=== PATIENT | female | born 1985 | race Caucasian/White ===

== ENCOUNTER 2021-07-16 10:48 | Day surgery (SDC) | payer OTHER, MEDICARE ==
[~2021-07-16] VITALS: Ht 162.6 cm; Wt 109.1 kg
--- NOTE | ~2021-07-16 | OR ---
[facility] [address] [place], [place] [address] Draft DATE OF OPERATION: 07/16/2021 SURGEON: Florentino Valencia DO PROCEDURE: Hysteroscopy, dilatation and curettage, and colposcopy with endocervical curettage. PREOPERATIVE DIAGNOSES: Abnormal uterine bleeding, fibroid uterus, low-grade squamous intraepithelial lesion on cervical Pap smear. POSTOPERATIVE DIAGNOSIS: Abnormal uterine bleeding, fibroid uterus, low-grade squamous intraepithelial lesion on cervical Pap smear. MASSEUR/MASSEUSE: None. COMPLICATIONS: None. EBL: 25 mL. FINDINGS: Colonoscopy, low-grade cervical appearance. No acetowhite uptake. No abnormalities visualized with Lugol solution. Hysteroscopy diffusely thickened polypoid endometrium consistent with premenstrual state, posterior fundal fibroid and anterior sessile polyp measuring approximately 1 cm. INDICATIONS: The patient is a 36-year-old female, who strongly desires definitive surgical management of her abnormal uterine bleeding due to abnormal Pap. Recommended colposcopy prior to procedure as well as endometrial tissue sampling with hysteroscopy, D and C being preferred over endometrial biopsy. Risks, benefits, alternatives were discussed and the patient elected to proceed. DESCRIPTION OF PROCEDURE: The patient was taken to the operating room where she was placed in dorsal lithotomy position under monitored anesthesia care. External pelvic prep was performed and she PATIENT NAME: MOISES SEGURA OPERATIVE REPORT DATE OF : [birth year] REPORT #: [id number] PHYSICIAN: FLORENTINO VALENCIA DO PCP: OTHER PCP REPORT IS CONFIDENTIAL AND NOT TO BE RELEASED WITHOUT AUTHORIZATION [facility] [address] [place], [place] [address] Draft was draped in the usual sterile fashion. Acetic acid was then applied to the vagina and the cervix and colposcopy was performed with good visualization of the squamocolumnar junction. No acetowhite uptake was visualized. Lugol solution was then applied. Similarly, no abnormal lesions were visualized after application of Lugol's. Incision was made to proceed with endocervical curettage, which was completed without difficulty. Instrumentation was removed and the vaginal prep was performed with Betadine solution. Weighted speculum was then placed in the vagina. Anterior lip of the cervix was grasped with an Allis clamp and easily sequentially dilated to accommodate a 6 mm scope. The scope was then introduced and inserted into the uterine cavity without any difficulty or resistance. Uterine cavity was surveyed with findings as noted above. MyoSure device was then used to perform circumferential curettage of the endometrium, polypectomy, and partial myomectomy of the posterior fibroid. All instrumentation was removed. Fluid deficit was noted to be 350 mL. Sterile saline . Cervix was reexamined and noted to be hemostatic and patient was taken to the recovery in stable and satisfactory condition. Florentino Valencia DO EMAlexandria/MODL /[id number] Copies: ~ PATIENT NAME: MOISES SEGURA OPERATIVE REPORT DATE OF : [birth year] REPORT #: [id number] PHYSICIAN: FLORENTINO VALENCIA DO PCP: OTHER PCP REPORT IS CONFIDENTIAL AND NOT TO BE RELEASED WITHOUT AUTHORIZATION
[~2021-07-16 10:48] MED LIST: BENADRYL25 MG PO; IRON18 MG PO
--- NOTE | 2021-07-16 18:49 | NUR ---
07/16/211848 Leticia Johnston 184: PT ARRIVES TO PACU FROM OR VIA STRETCHER. AWAKE ON AND OFF, RESPONDS TO VERBAL STIMULUS. VSS, RESP EVEN AND UNLABORED ON RA. MAINTAINS OWN AIRWAY. DENIES PAIN AND NAUSEA AT THIS TIME
--- NOTE | 2021-07-18 16:58 | PATH ---
[facility] [address] [place], [place] [address] Signed SPECIMEN(S): A ENDOCERVICAL CURETTINGS SPECIMEN(S): B ENDOMETRIAL CURETTINGS SPECIMEN SOURCE: A. ENDOCERVICAL CURETTINGS B. ENDOMETRIAL CURETTINGS CLINICAL HISTORY: Abnormal uterine bleeding, LGSIL on Pap smear of cervix. Hysteroscopy DC, colposcopy with biopsy. FINAL PATHOLOGIC DIAGNOSIS: A. Endocervix, curettage: - Non-diagnostic; scant tissue did not survive processing. B. Endometrium, curettage: - Secretory phase endometrium with features of endometrial polyps. - No hyperplasia or neoplasia identified. COMMENT: The previous cytologic material ([id number]) is reviewed. The histologic findings in the current case do not explain the cytologic findings. Continued follow-up in accordance with current ASCCP guidelines is recommended. BRP:cml:C2NR MICROSCOPIC EXAMINATION: Histologic sections of all submitted blocks are examined by light microscopy. These findings, together with the gross examination, support the pathologic diagnosis. GROSS DESCRIPTION: Two specimens are received in two containers, labeled "AD." A. The specimen, labeled "AD, A," and designated on the requisition "ECC," is received in formalin and consists of two fragments of brown-jackson tissue (less than 0.1 cm in aggregate) that would likely not survive processing. The specimen is sent to cytology for cell block preparation. B. The specimen, labeled "AD, B," and designated on the requisition "EMC," is received in formalin and consists of multiple fragments of pink-jackson soft tissue (4.0 x 2.5 x 0.5 cm in aggregate). The specimen is submitted entirely in cassettes (B1-B2). PATIENT NAME: MOISES SEGURA PATHOLOGY DATE OF : [birth year] REPORT #: [id number] PHYSICIAN: JUDIE CONCEPCION PCP: OTHER PCP REPORT IS CONFIDENTIAL AND NOT TO BE RELEASED WITHOUT AUTHORIZATION [facility] [address] [place], [place] [address] Signed AC (under the direct supervision of a pathologist) The Gross Description was prepared using a voice recognition system. The report was reviewed for accuracy; however, sound-alike word errors, addition and/or deletions may occur. If there is any question about this report, please contact Client Services. PERFORMING LABORATORY: The technical component was performed by [facility] [address] (Pit Furnace Operator: Shannen Oliver MD; CLIA# [id number]).Professional [facility], [address] [address] (CLIA# [id number]). Diagnostician: Nolan Donaldson MD Pathologist Electronically Signed 07/18/2021 Copies: ~ PATIENT NAME: MOISES SEGURA PATHOLOGY DATE OF : [birth year] REPORT #: [id number] PHYSICIAN: JUDIE CONCEPCION PCP: OTHER PCP REPORT IS CONFIDENTIAL AND NOT TO BE RELEASED WITHOUT AUTHORIZATION
== END 2021-07-16 19:24 | disposition home or self-care (01) ==
LOC: DS 10:48 → OPS 10:48
PROVIDERS: ATTEND Obstetrics & Gynecology
PROC: 0UDB8ZZ Extraction of Endometrium, Via Natural or Artificial Opening Endoscopic (ICD-10-PCS; principal; 2021-07-16 13:15)
PROC: 0UJH8ZZ Inspection of Vagina and Cul-de-sac, Via Natural or Artificial Opening Endoscopic (ICD-10-PCS; 2021-07-16 13:15)
DX: D25.9 Leiomyoma of uterus, unspecified (principal); R87.612 Low grade squamous intraepithelial lesion on cytologic smear of cervix (LGSIL); D50.0 Iron deficiency anemia secondary to blood loss (chronic); Z87.891 Personal history of nicotine dependence
CPT/HCPCS: 00952; J1100; J1885; J2001; J2250; J2405; J2704; J7121

== ENCOUNTER 2021-07-30 05:45 | Day surgery (SDC) | payer OTHER, MEDICARE ==
[~2021-07-30] VITALS: Ht 162.6 cm; Wt 108.9 kg
--- NOTE | ~2021-07-30 | OR ---
[facility] [address] [place], [place] [address] Draft DATE OF OPERATION: 07/30/2021 SURGEON: Florentino Valencia DO PROCEDURE: Total laparoscopic hysterectomy, bilateral salpingectomy, ExCITE procedure, cystoscopy. MATHEMATICS TECHNICIAN: Ean Redding MD PREOPERATIVE DIAGNOSES: 1. Abnormal uterine bleeding. 2. Fibroid uterus. 3. BMI 43. 4. Iron deficiency anemia. POSTOPERATIVE DIAGNOSES: 1. Abnormal uterine bleeding. 2. Fibroid uterus. 3. BMI 43. 4. Iron deficiency anemia. 5. Endometriosis. COMPLICATIONS: None. BLOOD LOSS: 50 mL. FINDINGS: Significantly enlarged fibroid uterus with numerous small scattered endometriosis lesions throughout the abdomen and pelvis including overlying the bladder, anterior and posterior uterus, bilateral abdominal sidewalls. No endometriomas were noted on either ovary. No deep scarring was observed. No lesions visible on uterosacral ligaments or bilateral ovarian fossa. INDICATIONS: The patient is a 36-year-old female with known fibroids history of very heavy painful and prolonged periods. She strongly desired definitive surgical management. She underwent hysteroscopy, D and C as well as colposcopy due to history of low-grade PATIENT NAME: MOISES SEGURA OPERATIVE REPORT DATE OF : [birth year] REPORT #: [id number] PHYSICIAN: FLORENTINO VALENCIA DO PCP: OTHER PCP REPORT IS CONFIDENTIAL AND NOT TO BE RELEASED WITHOUT AUTHORIZATION [facility] [address] [place], [place] [address] Draft squamous intraepithelial lesions with some benign findings resulting. Risks, benefits, and alternatives to total laparoscopic hysterectomy were discussed and she elected to proceed. DESCRIPTION OF PROCEDURE: The patient was taken back to the operating room where she was given 2 g Ancef and 5000 units heparin subcu. She was placed under general anesthesia and positioned in dorsal lithotomy and prepped and draped in the normal sterile fashion. Weighted speculum was placed. Anterior lip of the cervix was grasped with an Allis clamp and cervix was easily sequentially dilated to accommodate a medium-sized VCare uterine manipulator. First sounded to 9 cm. A VCare uterine manipulator was placed without difficulty and all other instrumentation was removed. Surgeon's gloves were changed and attention was turned to the abdomen. Local anesthetic was injected infraumbilically and an infraumbilical curvilinear incision was made. This was carried down to the fascia with blunt and sharp dissection with hemostats and Metzenbaum scissors. The fascia was grasped and elevated with hemostats and incised with Metzenbaum scissors. Inferior and superior lip of the fascia were each grasped with a stay suture of 0 Vicryl. The peritoneum was entered bluntly. Madison trocar was placed without difficulty. Abdomen was insufflated with CO2 gas and camera confirmed intra-abdominal placement. Left lateral abdominal assist port was placed after local injection and 5 mm incision with a scalpel. A 5 mm trocar was placed under direct visualization without incident. Attention was then turned to the right lateral abdomen where in a similar fashion an 8 mm incision was made with a scalpel after infiltration with local anesthetic and an 8 mm trocar was placed under direct visualization without incident. Blunt grasper and patient positioning in Trendelenburg facilitated visualization of pelvic structures with findings as noted above. Shortly after pneumoperitoneum was achieved and the patient was placed in Trendelenburg positioning, she began to have a mild bradycardia event at which point she was returned to normal positioning and abdomen was slightly deflated with excellent return of normal heart rate. She is once again placed in Trendelenburg position without incident and pneumoperitoneum was resumed. Left fimbria were grasped and elevated with graspers and left tube was cauterized and cut to the mesosalpinx and transected at the cornea using a LigaSure device. The tube was removed from the abdomen under direct visualization. In a similar manner, fimbriated end of the right tube was then grasped and elevated and the mesosalpinx was cauterized and cut to level of the cornea at which point, the tube was transected and removed from the abdomen under direct visualization. Left utero-ovarian ligament was cauterized and cut with LigaSure device. In a similar manner, the right utero-ovarian ligament was also cauterized and cut with LigaSure device. Left round ligament was cauterized and cut with LigaSure, allowing entry into the broad ligament. Anterior leaf of the broad ligament was dissected down to the level of the cardinal ligaments and then brought across anteriorly creating the start of the bladder flap. In a similar manner, the posterior leaf was dissected down to the level of the uterosacral ligament, brought across medially to develop a posterior PATIENT NAME: MOISES SEGURA OPERATIVE REPORT DATE OF : [birth year] REPORT #: [id number] PHYSICIAN: FLORENTINO VALENCIA DO PCP: OTHER PCP REPORT IS CONFIDENTIAL AND NOT TO BE RELEASED WITHOUT AUTHORIZATION [address] [address] Draft dissection. Uterine vessels were then skeletonized and cauterized and cut using LigaSure device with hemostasis resulting. Attention was then turned to the right side where in a similar manner, the right round ligament was cauterized and cut allowing entry into the broad ligament. The anterior leaf of the broad ligament was dissected to the level of the cardinal ligaments and then dissected across anteriorly to meet with a prior dissection and further develop the bladder flap, posteriorly, the posterior leaf was cauterized and cut with the ligature to the level of the cardinal ligaments and brought medially to meet also with a prior dissection from the opposite side. Uterine vessels were skeletonized, cauterized, and cut with excellent palpation of the VCare manipulator . Colpotomy was made with Sonicision device with some difficulty due to large fibroid uterus, but with careful positioning of the manipulator excellent visualization was able to be maintained at all times. Attempts were made to deliver the uterus vaginally, but once proved unsuccessful, decision was made to proceed with ExCITE procedure. EndoCatch bag was placed in the abdomen. Uterus was easily manipulated into the EndoCatch bag which was then brought up through the supraumbilical incision. Tahir retractor was placed the cervix was grasped with a single-tooth tenaculum, elevated and starting with the cervix, we are working sequentially to the entire uterus, C incisions were performed with a scalpel, allowing for careful dissection of the uterus and removal through the umbilical incision while maintaining containment within the EndoCatch bag. Once the entire uterus and fibroids had been removed, EndoCatch bag was removed through the uterus and Tahir retractor was removed and Madison trocar was replaced. Pelvis was suction irrigated with warm sterile saline with excellent hemostasis noted. Vaginal cuff was closed with EndoStitch device using VCare locking suture working from right to left taking care to stay within the uterosacrals and then left to right to finally lock the suture. Suture was cut. Pelvis was reinspected. Tisseel was applied over the vaginal cuff. Pneumoperitoneum was evacuated. The fascia was closed with 0 Vicryl in a running fashion. Skin was closed with 4-0 Monocryl and cystoscopy was performed. Oscar catheter was removed. Cystoscope was introduced through the urethra. Bladder was surveyed with dome noted to be intact without any signs of puckering or injury. Trigone was easily visualized and bilateral ureteral jets were quickly seen. Scope was removed. Oscar catheter was replaced to be removed in PACU once the patient was ambulating. Vagina was inspected and vaginal cuff was noted to be intact. All sponge and instrument counts were correct x2. The patient tolerated the procedure well and was taken to recovery room in stable and satisfactory condition with plans to discuss endometriosis suppression postoperatively. Florentino Valencia DO PATIENT NAME: MOISES SEGURA OPERATIVE REPORT DATE OF : [birth year] REPORT #: [id number] PHYSICIAN: FLORENTINO VALENCIA DO PCP: OTHER PCP REPORT IS CONFIDENTIAL AND NOT TO BE RELEASED WITHOUT AUTHORIZATION [address] [address] Draft MORTEZA/RIKI /[id number] Copies: ~ PATIENT NAME: MOISES SEGURA OPERATIVE REPORT DATE OF : [birth year] REPORT #: [id number] PHYSICIAN: FLORENTINO VALENCIA DO PCP: OTHER PCP REPORT IS CONFIDENTIAL AND NOT TO BE RELEASED WITHOUT AUTHORIZATION
--- NOTE | 2021-07-30 08:52 | NUR ---
PT STATED SHE DID NOT WANT OR NEED MY SERVICES. WILL FOLLOW NEEDED
--- NOTE | 2021-07-30 10:34 | NUR ---
07/30/21 Rocky4 Melissa Hughes 1029-PATIENT ARRIVED TO PACU ON 6L MASK NONAROUSABLE ORAL AIRWAY IN PLACE RR EVEN. SR. IVF INFUSING. 1 GRAM IV TYLENOL STARTING TO INFUSE. 3 LAP SITES TO ABDOMEN BANDAIDS CDI. RIVERA CATHETER TO GRAVITY DRAINING BRIGHT YELLOW URINE.
--- NOTE | 2021-07-30 11:28 | NUR ---
1110: PT RETURNS TO UNIT VIA STRETCHER FROM PACU. AWAKE AND ORIENTED ON ARRIVAL. DENIES PAIN AND NAUSEA. REPORTS BEING CHILLED. WARM BLANKETS AND KAYE HUGGER PROVIDED. VSS, RESP EVEN AND UNLABORED ON RA. SMALL AMOUNT OF DRAINAGE NOTED ON LAP SITES, WNL. SCDS IN PLACE. POC DISCUSSED AND PT AGREEABLE AT THIS TIME. NO NEEDS VOICED, CALL LIGHT WITHIN REACH
--- NOTE | 2021-07-30 12:02 | NUR ---
1200: PT CALLS FOR THIS RN. REQUESTS RIVERA CATH REMOVAL. VSS, RESP EVEN AND UNLABORED. DENIES PAIN AND NAUSEA. 100ML FLOURESCENT YELLOW URINE DRAINED FROM CATH AND CATH REMOVED. NO DRAINAGE NOTED ON PERIPAD. NO CHANGE TO LAP SITES X3 FROM ARRIVAL. SCDS REMAIN IN PLACE. IV CONVERTED TO SL. PT PROVIDED ICE WATER AND CRACKERS. DION PO INTAKE WELL. NO NEEDS VOICED, CALL LIGHT WITHIN REACH
--- NOTE | 2021-08-01 15:17 | PATH ---
[facility] [address] [place], [place] [address] Signed SPECIMEN(S): A UTERUS, CERVIX, BILATERAL TUBES SPECIMEN SOURCE: A. UTERUS, CERVIX, BILATERAL TUBES CLINICAL HISTORY: Abnormal uterine bleeding. TLH, bilateral salpingectomy, cystoscopy. FINAL PATHOLOGIC DIAGNOSIS: Uterus with bilateral fallopian tubes, hysterectomy and bilateral salpingectomy: - Morcellated uterus. - Proliferative phase endometrium; no hyperplasia or neoplasia identified. - Leiomyomas. - Cervix with no significant pathologic changes. - Bilateral fallopian tubes with no significant pathologic changes. BRP:cml:C2NR MICROSCOPIC EXAMINATION: Histologic sections of all submitted blocks are examined by light microscopy. These findings, together with the gross examination, support the pathologic diagnosis. GROSS DESCRIPTION: The specimen, labeled "AD, A," and designated on the requisition "bilateral tubes, uterus, cervix," is received in formalin and consists of a morcellated uterus (325 gram, 4.5 x 11.5 x 7.0 cm in aggregate), and fragmented cervix with pink-jackson, smooth cervical mucosa, and two red-brown, detached and undesignated fimbriated fallopian tube segments (5.5 cm in length and ranging in diameter from 0.5-1.4 cm, and 7.3 cm in length and ranging in diameter from 0.7-1.4 cm). One fallopian tube segment is arbitrarily inked blue and has an attached paratubal cyst that measures 1.3 cm in greatest dimension. The remainder of the specimen shows pink-jackson serosa, pink-jackson myometrium and multiple white-jackson, well-circumscribed, whorled nodules that range in size from 0.5-3.8 cm in greatest dimension. There is also identifiable pink-jackson endometrium (0.3 cm in thickness). Supplies Packer sections are submitted as follows: Cassette Summary: (A1-A2) Fallopian tubes PATIENT NAME: MOISES SEGURA PATHOLOGY DATE OF : [birth year] REPORT #: [id number] PHYSICIAN: JUDIE PATHOLOGY PCP: OTHER PCP REPORT IS CONFIDENTIAL AND NOT TO BE RELEASED WITHOUT AUTHORIZATION [facility] [address] [place], [place] [address] Signed (A3) Cervix (A4) Endomyometrium (A5-A7) Nodules with myometrium AC (under the direct supervision of a pathologist) The Gross Description was prepared using a voice recognition system. The report was reviewed for accuracy; however, sound-alike word errors, addition and/or deletions may occur. If there is any question about this report, please contact Client Services. PERFORMING LABORATORY: The technical component was performed by [facility] [address] ([employer]: Shannen Oliver MD; CLIA# [id number]). Professional interpretation was performed by [facility], [address] [place], [place] [address] (CLIA# [id number]). Diagnostician: Nolan Donalsdon MD Pathologist Electronically Signed 08/01/2021 Copies: ~ PATIENT NAME: MOISES SEGURA PATHOLOGY DATE OF : [birth year] REPORT #: [id number] PHYSICIAN: JUDIE PATHOLOGY PCP: OTHER PCP REPORT IS CONFIDENTIAL AND NOT TO BE RELEASED WITHOUT AUTHORIZATION
== END 2021-07-30 13:02 | disposition home or self-care (01) ==
LOC: DS 05:45
PROVIDERS: ATTEND Obstetrics & Gynecology
PROC: 0UT94ZZ Resection of Uterus, Percutaneous Endoscopic Approach (ICD-10-PCS; principal; 2021-07-30 06:45)
PROC: 0UT74ZZ Resection of Bilateral Fallopian Tubes, Percutaneous Endoscopic Approach (ICD-10-PCS; 2021-07-30 06:45)
DX: D25.9 Leiomyoma of uterus, unspecified (principal); D50.9 Iron deficiency anemia, unspecified; N80.9 Endometriosis, unspecified; Z87.891 Personal history of nicotine dependence
CPT/HCPCS: 84703; 85027; J0330; J0690; J1100; J1644; J1885; J2001; J2250; J2405; J2704; J3475; J7121

== ENCOUNTER 2021-12-16 18:25 | Emergency (ER) | payer MEDICARE, OTHER ==
[~2021-12-16] VITALS: Ht 162.6 cm; Wt 104.3 kg
[2021-12-16] MEDS ORDERED: SPRINTEC1 EACH PO (19:36)
[2021-12-16] MEDS ORDERED: ULTRAM50 MG PO (20:41)
== END 2021-12-16 21:09 | disposition home or self-care (01) ==
LOC: ED 18:25
DX: S93.602A Unspecified sprain of left foot, initial encounter (principal); Z79.899 Other long term (current) drug therapy; W22.8XXA Striking against or struck by other objects, initial encounter
CPT/HCPCS: 73630; 96372; 99283-25; J1885

== ENCOUNTER 2022-08-07 10:11 | Emergency (ER) | payer OTHER, MEDICARE ==
[~2022-08-07] VITALS: Ht 162.6 cm; Wt 111.1 kg
[~2022-08-07 10:11] MED LIST changes: +SPRINTEC1 EACH PO; +ULTRAM50 MG PO
[2022-08-07] MEDS ORDERED: AMITRIPTYLINE H10 MG PO (10:32)
[2022-08-07] MEDS ORDERED: REGLAN10 MG PO (14:47)
== END 2022-08-07 15:07 | disposition home or self-care (01) ==
LOC: ED 10:11
DX: R51.9 Headache, unspecified (principal)
CPT/HCPCS: 36415; 70450; 70551; 80048; 84703; 85025; 96374; 96375; 99284-25; J1200; J1885; J2765

== ENCOUNTER 2022-11-03 16:32 | Emergency (ER) | payer OTHER, MEDICARE ==
[~2022-11-03] VITALS: Ht 162.6 cm; Wt 108.5 kg
[~2022-11-03 16:32] MED LIST changes: +AMITRIPTYLINE H10 MG PO; +REGLAN10 MG PO
[2022-11-03] MEDS ORDERED: LISINOPRIL20 MG PO (16:53)
[2022-11-03] MEDS ORDERED: AMITRIPTYLINE H50 MG PO (16:54)
[2022-11-03] MEDS ORDERED: SUMATRIPTAN SUC50 MG PO (16:54)
--- NOTE | 2022-11-04 19:30 | EKG ---
[facility] [address] [facility] [place] [address] Signed Normal sinus rhythm Minimal voltage criteria for LVH, may be normal variant ( [place] product ) Inferior infarct , age undetermined Abnormal ECG No previous ECGs available Confirmed by Hema Yanez MD () on 11/04/2022 7:30:30 PM Electronically Signed By: HEMA YANEZ MD 11/04/221929 PATIENT NAME: COLTONMOISES TRONCOSO Electrocardiogram DATE OF : 81 PHYSICIAN: HEMA YANEZ MD REPORT #: [id number] REPORT IS CONFIDENTIAL AND NOT TO BE RELEASED WITHOUT AUTHORIZATION
== END 2022-11-03 18:16 | disposition home or self-care (01) ==
LOC: ED 16:32
DX: R07.9 Chest pain, unspecified (principal); I10 Essential (primary) hypertension; Z79.899 Other long term (current) drug therapy
CPT/HCPCS: 36415; 71045; 80053; 84484; 85025; 85379; 93005; 93010

== ENCOUNTER 2023-08-07 06:47 | Day surgery (SDC) | payer OTHER, MEDICARE, MEDICAID ==
[2023-07-30 09:46] VITALS: BP 151/99
[~2023-08-07] VITALS: Ht 162.6 cm; Wt 104.5 kg
--- NOTE | ~2023-08-07 | OR ---
[facility] [address] [place], [place] [address] Draft DATE OF OPERATION: 08/07/2023 SURGEON: Jamey Grover MD PREOPERATIVE DIAGNOSIS: Carpal tunnel syndrome, right. POSTOPERATIVE DIAGNOSIS: Carpal tunnel syndrome, right. PROCEDURE PERFORMED: Carpal tunnel release, right. OWNER/OPERATOR: None. ANESTHESIA: Kd block. TOURNIQUET TIME: 20 minutes. BRIEF HISTORY: Guerda is a 38-year-old female with pain and numbness in her hand. Nerve conduction studies consistent with carpal tunnel. Risks and benefits of operative treatment were discussed with her and she elected to proceed. DESCRIPTION OF PROCEDURE: Once consent was obtained, she was taken to the operating room and left on the day surgery bed. Her arm was prepped and draped in a standard sterile fashion after establishment of the Kd block. The carpal tunnel was approached through a 1.5 cm incision and the distal wrist crease carried through skin and subcutaneous tissue. Palmaris longus was identified, retracted, and protected. The transverse carpal ligament was then identified under direct loupe magnification. It was then dissected free of overlying soft tissue proximally and distally. It was released proximally a centimeter and distally to the distal extent. This was visualized with the loops. There was then palpated using the Blencoe and found to be completely released. Wound was copiously irrigated with normal saline, closed with 3-0 nylon. It was then injected with 7 mL 0.25% Marcaine with epinephrine. The wound was dressed with bacitracin, Adaptic, 4 x 8s, PATIENT NAME: GUERDA SEGURA OPERATIVE REPORT DATE OF : [birth year] REPORT #: [id number] PHYSICIAN: JAMEY GROVER MD PCP: ROSELINE EASLEY PA-C REPORT IS CONFIDENTIAL AND NOT TO BE RELEASED WITHOUT AUTHORIZATION [facility] [address] [facility] [place], [place] [address] Draft and gauze. She tolerated the procedure well. All sponge, needle, and instrument counts were correct. Jamey Grover MD BA/RIKI /[id number] Copies: ~ PATIENT NAME: GUERDA SEGURA OPERATIVE REPORT DATE OF : [birth year] REPORT #: [id number] PHYSICIAN: JAMEY GROVER MD PCP: ROSELINE EASLEY PA-C REPORT IS CONFIDENTIAL AND NOT TO BE RELEASED WITHOUT AUTHORIZATION
[~2023-08-07 06:47] MED LIST changes: +AMITRIPTYLINE H50 MG PO; +IRON325 M1 PO; +LISINOPRIL20 MG PO; +METOPROLOL SUCC50 MG PO; +SUMATRIPTAN SUC50 MG PO; +VENTOLIN HFA18 GM
[2023-08-07 07:12] VITALS: BP 135/82
[2023-08-07] MEDS ORDERED: HYDROCODON-ACE1 EA10 PO (09:30)
--- NOTE | 2023-08-07 09:46 | NUR ---
08/07/23 0946 Krysta,Annette 0903 PT ARRIVED TO PACU ON 10L VIA MASK, PT REACTIVE AND REORIENTED TO PACU. VSS. O2 DECREASED TO 6L. 0939 O2 REMOVED AND PT DENEIS PAIN. PT REPORTS NUMBNESS IN HAND AND EDUCATION GIVEN ON BLOCK. PT EASILY FALLS BACK TO SLEEP. RESP EVEN AND UNLABORED.
[2023-08-07 10:03] VITALS: BP 121/68
== END 2023-08-07 10:15 | disposition home or self-care (01) ==
LOC: OPS 06:47 → DS 06:47 → OPS 08:30
PROVIDERS: ATTEND Specialist
PROC: 01N50ZZ Release Median Nerve, Open Approach (ICD-10-PCS; principal; 2023-08-07 10:00)
DX: G56.01 Carpal tunnel syndrome, right upper limb (principal); I10 Essential (primary) hypertension
CPT/HCPCS: J0690; J1100; J1885; J2250; J2405; J2704; J2765; J3010; J7121

== ENCOUNTER 2024-01-28 12:50 | Emergency (ER) | payer OTHER, MEDICARE, MEDICAID ==
[~2024-01-28] VITALS: Ht 162.6 cm; Wt 107.4 kg
[~2024-01-28 12:50] MED LIST changes: +HYDROCODON-ACE1 EA10 PO; +LIDOCAINE HCL100 ML MT; +OMEPRAZOLE40 MG PO; +ONDANSETRON ODT4 MG PO
[2024-01-28] MEDS ORDERED: PROCHLORPERAZINE EDISYLATE 10 MG/2 ML VIAL IM ONE (13:45)
[2024-01-28] MEDS ORDERED: KETOROLAC TROMETHAMINE 30 MG/ML VIAL IM ONE (13:45)
[2024-01-28] MEDS ORDERED: PROCHLORPERAZIN10 MG PO (16:39)
[2024-01-28 16:50] VITALS: BP 148/86
== END 2024-01-28 16:52 | disposition home or self-care (01) ==
LOC: ED 12:50
DX: G44.86 Cervicogenic headache (principal); R11.2 Nausea with vomiting, unspecified; I10 Essential (primary) hypertension; Z79.899 Other long term (current) drug therapy; Z79.818 Long term (current) use of other agents affecting estrogen receptors and estrogen levels
CPT/HCPCS: 96372; 99283; J0780; J1885